=== PATIENT | male | born 1940 | race Caucasian/White ===

== ENCOUNTER 2017-03-25 09:56 | Day surgery (SDC) | payer OTHER ==
[2017-03-25] MEDS ORDERED: LIDOCAINE 1% 2 ML INJ ID PRN (10:17)
[2017-03-25] MEDS ORDERED: LR 1,000 ML IV ONE (10:17)
[2017-03-25] MEDS ORDERED: BUPIVACAINE 0.5% 30 ML SDV ONE (10:19)
--- NOTE | 2017-03-25 10:53 | PDANEPAE ---
ANE History of Present Illness left elbow bursitis ANE Past Medical History - Cardiovascular History Hx Hypertension: Yes Hx Arrhythmias: No Hx Chest Pain: No Hx Coronary Artery / Peripheral Vascular Disease: Yes Hx CHF / Valvular Disease: No Hx Palpitations: No Cardiovascular History Comment: 2009 STENT X2 - Pulmonary History Hx COPD: No Hx Asthma/Reactive Airway Disease: No Hx Recent Upper Respiratory Infection: No Hx Oxygen in Use at Home: No Hx Sleep Apnea: No Sleep Apnea Screening Result - Last Documented: Positive - Neurologic History Hx Cerebrovascular Accident: No Hx Seizures: No Hx Dementia: No - Endocrine History Hx Diabetes: No - Renal History Hx Renal Disorders: No - Liver History Hx Hepatic Disorders: No - Neurological & Psychiatric Hx Hx Neurological and Psychiatric Disorders: No - Cancer History Hx Cancer: No - Congenital Disorder History Hx Congenital Disorders: No - GI History Hx Gastrointestinal Disorders: Yes Gastrointestinal History Comment: REFLUX - Other Health History Other Health History: DERMATIS/PSORIASIS BOTH ELBOWS - Chronic Pain History Chronic Pain: No - Surgical History Prior Surgeries: LTKA 2012 RTKA 2013 ANE Review of Systems Review of Systems: - Exercise capacity METS (RN): 4 METS ANE Patient History - Allergies Allergies/Adverse Reactions: No Known Allergies Allergy (Verified 08/04/14 08:25) - Home Medications Home Medications: Aspirin [Aspirin 81mg (OTC)] 12/14/12 [Last Taken 03/19/17] Doxylamine Succinate [Sleep Aid] 12/14/12 [Last Taken 03/23/17] Lisinopril [Zestril 10 mg (RX)] 12/14/12 [Last Taken 03/25/17 07:30] RX: Omeprazole 12/14/12 [Last Taken 03/25/17 07:30] Simvastatin [Zocor 40 mg (RX)] 12/14/12 [Last Taken 03/24/17 22:30] Zolpidem Tartrate [Ambien 5MG (RX)] 12/14/12 [Last Taken 03/24/17 22:30] Fluticasone Nasal [Flonase Nasal [place] (RX)] 06/07/13 [Last Taken 03/01/15] - NPO status NPO Since - Liquids (Date): 03/24/17 NPO Since - Liquids (Time): 23:00 NPO Since - Solids (Date): 03/24/17 NPO Since - Solids (Time): 23:00 - Smoking Hx Smoking Status: Never smoked - Family Anes Hx Family Hx Anesthesia Complications: NONE ANE Labs/Vital Signs - Vital Signs Blood Pressure: 149/78 Heart Rate: 72 Respiratory Rate: 20 O2 Sat (%): 98 Height: 177.8 cm Weight: 88.904 kg ANE Physical Exam - Airway Neck exam: FROM Mallampati Score: Class 1 Mouth exam: normal dental/mouth exam - Pulmonary Pulmonary: no respiratory distress - Cardiovascular Cardiovascular: regular rate and rhythym - ASA Status ASA Status: II ANE Anesthesia Plan Anesthesia Plan: GA w LMA
[2017-03-25] MEDS ORDERED: fentaNYL 100 MCG/2 ML INJ ONE (11:26)
[2017-03-25] MEDS ORDERED: PROPOFOL 200 MG/20 ML VIAL ONE (11:26)
[2017-03-25] MEDS ORDERED: HYDROmorphONE/DILAUDID 2 MG/ML INJ ONE (11:26)
--- NOTE | 2017-03-25 11:32 | PDHPUP ---
History & Physical Update H&P update statement: This history and physical update is based on an assessment of the patient which was completed after admission or registration (within 24 hours), but prior to the surgery/procedure.
[2017-03-25] MEDS ORDERED: ONDANSETRON 4 MG/2 ML VIAL IVP PRN (11:45)
[2017-03-25] MEDS ORDERED: PROMETHAZINE HCL 25 MG/ML INJ IVP PRN (11:45)
[2017-03-25] MEDS ORDERED: NALOXONE HCL 0.4 MG/ML INJ IVP PRN (11:45)
[2017-03-25] MEDS ORDERED: fentaNYL 100 MCG/2 ML INJ IVP PRN (11:45)
[2017-03-25] MEDS ORDERED: HYDROmorphONE/DILAUDID 1 MG/ML INJ IVP PRN (11:45)
--- NOTE | 2017-03-25 12:17 | POSTOPPROG ---
Post Op Note Date of Operation: 03/25/17 Surgeon: Dale Robbins Concrete Finisher: none Anesthesiologist: Ysabel Gonzalez Anesthesia: LMA Pre-op Diagnosis: Left septic bursitis Post-op Diagnosis: Same Indication: sepsis Procedure: Bursectomy and debridement Findings: inflamed necrotic tissue but no pus Inf/Abcess present in the surg proc area at time of surgery?: No Depth: Deep Incisional (Fascial) EBL: Minimal Total fluids administered: 700 Complications: None. Tourniquet was deflated and bleeding was minimal and the stoppped. Drains: Other (packing of wound)
[2017-03-25] MEDS ORDERED: OXYCODONE/APAP 5/325 TAB PO PRN (12:21)
--- NOTE | 2017-03-25 12:23 | POSTANESTH ---
Post Anesthetic Evaluation Cardiovascular Status: Normal, Stable Respiratory Status: Normal, Stable Level of Consciousness/Mental Status: Can Participate in Eval Pain Control: Adequate, Prn Tx Ordered Nausea/Vomiting Control: Adequate, Prn Tx Ordered Complications Possibly Related to Anesthesia: None Noted
[2017-03-25] MEDS ORDERED: OXYCODONE/APAP 5/325 TAB ONE (13:02)
[2017-03-25 13:28] VITALS: BP 132/77; PULSE 79; RESP 16; TEMP 98.2; O2SAT 92
== END 2017-03-25 14:10 | disposition home or self-care (01) ==
LOC: FSGY 09:56
PROVIDERS: ATTEND Specialist
PROC: 0MB40ZZ Excision of Left Elbow Bursa and Ligament, Open Approach (ICD-10-PCS; principal; 2017-03-25 11:15)
DX: M71.122 Other infective bursitis, left elbow (principal); B95.61 Methicillin susceptible Staphylococcus aureus infection as the cause of diseases classified elsewhere; Z95.5 Presence of coronary angioplasty implant and graft
CPT/HCPCS: J1170; J2704; J3010

== ENCOUNTER → 2017-10-30 | Outpatient (CLI) | payer OTHER | LOC: BMCIMAGING 10:09 | PROVIDERS: ATTEND Internal Medicine | DX: M54.12 Radiculopathy, cervical region (principal); M50.820 Other cervical disc disorders, mid-cervical region, unspecified level; M50.823 Other cervical disc disorders at C6-C7 level ==

== ENCOUNTER 2018-03-03 15:42 | Emergency (ER) | payer OTHER ==
[2018-03-03 15:49] VITALS: BP 141/67
--- NOTE | 2018-03-03 16:19 | EDPHY ---
H & P Stated Complaint: lac to r 3rd digit Time Seen by Provider: 03/03/18 16:16 HPI/ROS: HPI: This is a 78-year-old male who presents with Chief Complaint: lac to r 3rd digit Location: Right middle finger Quality: Laceration Duration: Yesterday afternoon Signs and Symptoms: No bleeding, no radiation, no numbness, no weakness, no tingling, no incontinence, no decreased range of motion, no swelling, no pain, no fever Timing: Acute Severity: Mild Context: Patient is right-hand dominant, presents with complaints of accidentally cutting his right middle finger pad yesterday as he was removing the Band-Aid on it with a knife. He washed yesterday and put a Band-Aid back on it. He reports that he took the Band-Aid off this morning and realized that the laceration was deeper than he had anticipated. Tetanus is current. Denies radiation, skin color changes, weakness, decreased range of motion. Patient reports that he takes a daily low-dose penicillin antibiotic. Modifying Factors: Local wound care Comment: ROS: A comprehensive 10 system review of systems is otherwise negative aside from elements mentioned in the history of present illness. MEDICAL/SURGICAL/SOCIAL HISTORY: Medical/surgical history: HTN, cardiac stents 2008, R TKA 2012, L TKA 2010 ear surgery 2012, hard of hearing, left knee infection surgery Social history: Retired, nonsmoker CONSTITUTIONAL: Polite and cooperative nontoxic-appearing elderly white male, awake and alert, no obvious distress HEENT: Atraumatic and normocephalic. NECK: supple EXTREMITIES: 2/2 pulses, strength 5/5, right middle finger pad shows half a cm superficial skin avulsion; no active bleeding; no surrounding erythema. DIP/PIP/ MCP flexion/extension intact with good light touch sensation. no deformities, no clubbing, no cyanosis or edema. NEUROLOGICAL: no focal neuro deficits. GCS 15. Light touch sensation intact. SKIN: Warm and dry, no erythema. no rash. Good capillary refill. Source: Patient Exam Limitations: No limitations - Personal History Current Tetanus Diphtheria and Acellular Pertussis (TDAP): Yes Tetanus Vaccine Date: LESS THAN 10 YEARS - Medical/Surgical History Hx Asthma: No Hx Chronic Respiratory Disease: No Hx Diabetes: No Hx Cardiac Disease: Yes Hx Renal Disease: No Hx Cirrhosis: No Hx Alcoholism: No Hx HIV/AIDS: No Hx Splenectomy or Spleen Trauma: No Other PMH: HTN, cardiac stents 2008, R TKA 2012, L TKA 2010 ear surgery 2013, hard of hearing, left knee infection surgery - Social History Smoking Status: Never smoked Constitutional: Initial Vital Signs Temperature (C) 36.6 C 03/03/18 15:48 Heart Rate 81 03/03/18 15:48 Respiratory Rate 16 03/03/18 15:48 Blood Pressure 141/67 H 03/03/18 15:48 O2 Sat (%) 98 03/03/18 15:48 O2 Delivery Mode Room Air Allergies/Adverse Reactions: No Known Allergies Allergy (Verified 03/03/18 15:47) Home Medications: Medication Instructions Recorded Aspirin [Aspirin 81mg (OTC)] 12/14/12 Doxylamine Succinate [Sleep Aid] 12/14/12 Lisinopril [Zestril 10 mg (RX)] 12/14/12 Omeprazole 12/14/12 Simvastatin [Zocor 40 mg (RX)] 12/14/12 Zolpidem Tartrate [Ambien 5MG (RX)] 12/14/12 Fluticasone Nasal [Flonase Nasal 06/07/13 [place] (RX)] Medical Decision Making ED Course/Re-evaluation: Irrigated copiously; bacitracin and clean sterile dressing applied. No indication for sutures. Patient already takes low-dose penicillin daily. No indication for antibiotics. Bacitracin and tube gauze applied. Verbal and written wound care instructions provided. No signs of neurovascular compromise/tenting of skin/compartment syndrome/ extremities and joints examined above and below area of concern and are neurovascularly intact/cellulitis/abscess. This patient was seen under the supervision of my secondary supervising physician. I evaluated care for this patient independently. Discussed this patient with Dr. Mcdonough. Differential Diagnosis: Differential diagnosis includes but is not limited to skin avulsion, laceration , nerve injury, tendon injury, cellulitis. Departure - Departure Disposition: Home, Routine, Self-Care Clinical Impression: Avulsion of skin of finger without complication Qualifiers: Encounter type: initial encounter Qualified Code(s): S61.209A - Unspecified open wound of unspecified finger without damage to nail, initial encounter Condition: Good Instructions: Skin Avulsion (ED) Additional Instructions: Keep the dressing dry and in place for 48 hours. After 48 hours, you may remove the dressing; wash the site daily with mild soap and water; then pat dry. Apply topical antibiotic ointment daily and clean sterile dressing until fully healed. Take Tylenol 650 mg every 4 hours and/or Ibuprofen 600 mg every 8 hours with food as needed for pain. Return to the ER immediately if you experience redness, red streaks, have fevers /chills, flu like symptoms, limited range of motion, or any other symptoms that concern you. Referrals: Eliel Munguia MD [Primary Care Provider] - 5-7 days, if not improved
== END 2018-03-03 16:35 | disposition home or self-care (01) ==
DX: S61.212A Laceration without foreign body of right middle finger without damage to nail, initial encounter (principal); I10 Essential (primary) hypertension; W26.0XXA Contact with knife, initial encounter; Y92.9 Unspecified place or not applicable; Y93.9 Activity, unspecified; Y99.9 Unspecified external cause status